=== PATIENT | female | born 1990 | race Caucasian/White ===

== ENCOUNTER 2020-12-06 18:55 | Emergency (ER) | payer OTHER, SELFPAY ==
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
[2020-12-06 19:07] VITALS: BP 132/92; PULSE 97; RESP 16; TEMP 37.1; O2SAT 97; BMI 25.0
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
--- NOTE | 2020-12-06 19:41 | PC.NURSE ---
PROVIDER AT BEDSIDE TO DO BEDSIDE ULTRASOUND. URINE SENT.
[2020-12-06 19:47] LABS: Glucose Urine UA NEG (NEG); Leukocyte Esterase Urine NEG (NEG); Nitrite Urine NEG (NEG); Specific Gravity - Urine >= 1.030 (1.005-1.025); Urine Blood NEG (NEG); Urine Ketones NEG (NEG); Urine Protein NEG (NEG-TRACE)
[2020-12-06 19:48] LABS: UPreg QC Valid YES; Urine Pregnancy NEGATIVE (NEGATIVE)
[2020-12-06 19:50] LABS: Appearance Urine CLEAR; Color Urine YELLOW
[2020-12-06 20:03] LABS: MANUAL DIFF FLAG NO
[2020-12-06] MEDS: iohexoL 350 MG/ML 100 ML INFUS..BTL IV (20:07)
[2020-12-06 20:10] LABS: Basophils Percent Auto 0.3 % (0-2); Eosinophils Absolute Auto 0.1 X10*3/uL (0.0-0.4); Eosinophils Percent Auto 0.4 % (0-4); Hematocrit 41.4 % (37-47); Hemoglobin 13.5 g/dl (12.0-16.0); Imm Gran Abs Auto 0.06 X10*3/uL (0.00-0.03); Imm Gran Pct Auto 0.4 % (0.0-0.4); Lymphocytes Absolute Auto 1.8 X10*3/uL (1.2-4.9); Lymphocytes Percent Auto 11.2 % (20-40); Mean Corpuscular HGB Conc 32.6 g/dl (31.0-35.0); Mean Corpuscular Hemoglobin 28.7 pg (27.0-33.0); Mean Corpuscular Volume 87.9 fL (80-98); Mean Platelet Volume 10.2 fL (9.4-12.3); Monocytes Absolute Auto 0.9 X10*3/uL (0.1-1.2); Monocytes Percent Auto 5.4 % (2-11); Neutrophils Percent Auto 82.3 % (45-73); Platelet Count 313 X10*3/uL (160-400); Red Blood Count 4.71 X10*6/uL (4.20-5.50); Red Cell Distribution Width 12.3 % (11.0-16.0); White Blood Count 15.8 X10*3/uL (4.8-10.8)
[2020-12-06 20:17] LABS: Prothrombin Time 12.3 SEC (10.8-13.0)
[2020-12-06] MEDS: 0.9 % Sodium Chloride 1,000 ML 999 ML IV (20:20)
[2020-12-06 20:28] LABS: Alanine Aminotransferase 14 U/L (0-31); Albumin Level 4.6 g/dL (3.5-5.0); Alkaline Phosphatase 69 U/L (39-117); Anion Gap 14 (12-20); Aspartate Amino Transferase 14 U/L (5-31); Bilirubin Total 0.2 mg/dL (0.0-1.0); Blood Urea Nitrogen 15 mg/dL (9-16); Calcium 9.5 mg/dL (8.4-10.2); Carbon Dioxide 26 mmol/L (22-29); Chloride 105 mmol/L (96-108); Creatinine Clr Calc Pharmacy 99.5; Estimated Glomerular Filt Rate > 60; Glucose Random 98 mg/dL (60-115); Potassium 3.8 mmol/L (3.3-5.1); Sodium 141 mmol/L (135-145); Total Protein 7.6 g/dL (6.5-8.0)
[2020-12-06 20:40] VITALS: BP 124/79; PULSE 82; RESP 16; TEMP 36.2; O2SAT 98
[2020-12-06] MEDS: Morphine Sulfate 4 MG/ML CARTRIDGE 2 MG IVPUSH (20:41)
[2020-12-06] MEDS: ondansetron HCL 4 MG/2 ML VIAL IVPUSH (20:41)
[2020-12-06 21:13] VITALS: BP 128/82; PULSE 70; RESP 16; O2SAT 98
== END 2020-12-06 22:15 | disposition home or self-care (01) ==
PROVIDERS: Nurse Practitioner Primary Care; Emergency Provider Internal Medicine; PCP Family Medicine
DX: S30.1XXA Contusion of abdominal wall, initial encounter (principal); V23.4XXA Motorcycle driver injured in collision with car, pick-up truck or van in traffic accident, initial encounter; G89.11 Acute pain due to trauma; M25.562 Pain in left knee; M25.561 Pain in right knee; M25.512 Pain in left shoulder; M25.511 Pain in right shoulder; Y93.89 Activity, other specified; Y92.414 Local residential or business street as the place of occurrence of the external cause; Y99.9 Unspecified external cause status
CPT/HCPCS: 36415; 70450; 71260; 72125; 73030; 73562; 73600; 74177; 80053; 81003; 81025; 85025; 85610; 85730; 96361; 96374; 96375; 99284; J2270; J2405; Q9967